=== PATIENT | female | born 1965 | race Caucasian/White ===

== ENCOUNTER 2023-04-21 10:00 | Emergency (ER) | payer BC ==
[2023-04-21] MEDS ORDERED: Sulfamethoxazole/Trimethoprim 800-160 MG Tab PO ONE ×3 (10:28→10:35)
[2023-04-21 10:30] LABS: APPEARANCE,URINE TURBID (CLEAR); BILIRUBIN,URINE SMALL (NEGATIVE); COLOR,URINE DARK YELLOW (YELLOW); GLUCOSE,URINE 100 mg/dL (NEGATIVE); KETONES,URINE NEGATIVE (NEGATIVE); LEUKOCYTE ESTERASE,URINE SMALL (NEGATIVE); NITRITE,URINE POSITIVE (NEGATIVE); OCCULT BLOOD,URINE LARGE (NEGATIVE); PROTEIN,URINE >=300 mg/dL (NEGATIVE)
[2023-04-21 10:31] LABS: BACTERIA,URINE FEW /HPF (NONE TO FEW); EPITHELIAL CELLS,URINE FEW /LPF; RBC,URINE >100 /HPF (0-5)
== END 2023-04-21 10:35 | disposition home or self-care (01) ==
LOC: KA.ED 10:00
DX: N30.01 Acute cystitis with hematuria (principal); Z88.1 Allergy status to other antibiotic agents; Z88.5 Allergy status to narcotic agent
CPT/HCPCS: 81001; 87086; 87088; 99283; A9270-GY